=== PATIENT | female | born 1970 | race American Indian/Alaskan Native ===

== ENCOUNTER 2019-08-20 19:15 | Emergency (ER) | payer OTHER ==
--- NOTE | 2019-08-20 19:25 | Emergency Department Report ---
Blank Doc - Documentation Documentation: 48-year-old female that presents with SOB and sore throat. Denies any chest p ain. This initial assessment/diagnostic orders/clinical plan/treatment(s) is/are subject to change based on patient's health status, clinical progression and re- assessment by fellow clinical providers in the ED. Further treatment and workup at subsequent clinical providers discretion. Patient/guardians urged not to elope from the ED as their condition may be serious if not clinically assessed and managed. Initial orders include: 1- Patient sent to MAIN ED for further evaluation and treatment 2- Strep swab 3- EKG 4- CXR 5- labs
[2019-08-20 19:57] LABS: Basophils # (Auto) 0.1 K/mm3 (0.0-0.1); Basophils % (Auto) 0.7 % (0.0-1.8); Eosinophils # (Auto) 0.1 K/mm3 (0.0-0.4); Eosinophils % (Auto) 0.5 % (0.0-4.3); Hematocrit 43.3 % (30.3-42.9); Hemoglobin 14.4 gm/dl (10.1-14.3); Lymphocytes # (Auto) 3.3 K/mm3 (1.2-5.4); Mean Corpuscular HGB Conc 33 % (30-34); Mean Corpuscular Volume 88 fl (79-97); Monocytes % (Auto) 8.2 % (0.0-7.3); Platelet Count 307 K/mm3 (140-440); Red Blood Count 4.93 M/mm3 (3.65-5.03); Red Cell Distribution Width 14.8 % (13.2-15.2)
[2019-08-20 20:07] LABS: INR 1.01 (0.87-1.13)
[2019-08-20 20:09] LABS: Partial Thromboplastin Time 28.3 Sec. (24.2-36.6)
[2019-08-20 20:22] LABS: Alanine Aminotransferase 14 units/L (7-56); Albumin 3.9 g/dL (3.9-5); BUN/Creatinine Ratio 10; Blood Urea Nitrogen 10 mg/dL (7-17); Calcium 9.2 mg/dL (8.4-10.2); Hemolysis Index 18
[2019-08-20] MEDS ORDERED: CLINDAMYCIN 600 MG/50 mL 600 MG/50 ML BAG IV ONE (20:57)
--- NOTE | 2019-08-20 21:02 | Emergency Department Report ---
ED General Adult HPI - General Chief complaint: Dyspnea/Respdistress Stated complaint: SD Time Seen by Provider: 08/20/19 19:23 Source: patient Mode of arrival: Ambulatory Limitations: No Limitations - History of Present Illness Initial comments: Patient is 48 years old female with no significant past medical history. Patient presented to the ER stating that she is feeling that there is something in her throat. Patient stated that she was eating a burger 5 days ago when she started feeling this symptoms. Recent stated that she is having difficulty swallowing. Patient denied chest pain. No fever or chills. -: days(s) (5) - Related Data Allergies Allergy/AdvReac Type Severity Reaction Status Date / Time codeine Allergy Vomiting Verified 08/20/19 19:20 Sulfa (Sulfonamide Allergy Rash Verified 08/20/19 19:20 Antibiotics) ED Review of Systems ROS: Stated complaint: SD Other details as noted in HPI Comment: All other systems reviewed and negative Constitutional: denies: chills, fever Respiratory: denies: cough, orthopnea, shortness of breath, SOB with exertion, SOB at rest Cardiovascular: denies: chest pain Gastrointestinal: denies: abdominal pain, nausea ED Past Medical Hx - Past Medical History Previous Medical History?: No - Surgical History Additional Surgical History: hysterectomy - Social History Smoking Status: Never Smoker Substance Use Type: None ED Physical Exam - General Limitations: No Limitations General appearance: alert, in no apparent distress - Head Head exam: Present: atraumatic, normocephalic, normal inspection - Eye Eye exam: Present: normal appearance - ENT ENT exam: Present: normal exam, normal orophraynx, mucous membranes moist - Neck Neck exam: Present: normal inspection, full ROM. Absent: tenderness, meningismus, lymphadenopathy, thyromegaly - Respiratory Respiratory exam: Present: normal lung sounds bilaterally - Cardiovascular Cardiovascular Exam: Present: regular rate, normal rhythm, normal heart sounds - GI/Abdominal GI/Abdominal exam: Present: soft, normal bowel sounds. Absent: distended, tenderness, guarding, rebound, rigid, organomegaly, mass, bruit, pulsatile mass, hernia - Extremities Exam Extremities exam: Present: normal inspection, full ROM, normal capillary refill. Absent: tenderness, pedal edema, joint swelling, calf tenderness - Back Exam Back exam: Present: normal inspection, full ROM. Absent: CVA tenderness (R), CVA tenderness (L) - Neurological Exam Neurological exam: Present: alert, oriented X3, CN II-XII intact, normal gait, reflexes normal - Psychiatric Psychiatric exam: Present: normal mood - Skin Skin exam: Present: warm, intact, normal color ED Course Vital Signs 08/20/19 08/20/19 19:22 19:23 Temperature 99 F 99.0 F Pulse Rate 99 H 99 H Respiratory 22 14 Rate Blood Pressure 154/99 Blood Pressure 154/99 [Right] O2 Sat by Pulse 99 98 Oximetry ED Medical Decision Making - Lab Data Result diagrams: 08/20/19 19:38 08/20/19 19:38 - EKG Data -: EKG Interpreted by Nh EKG shows normal: sinus rhythm Rate: normal - EKG Data Interpretation: no acute changes - Radiology Data Radiology results: report reviewed - Medical Decision Making Patient is 48 years old female with no significant past medical history. Patient presented to the ER stating that she is feeling that there is something in her throat. Patient stated that she was eating a burger 5 days ago when she started feeling this symptoms. Recent stated that she is having difficulty swallowing. Patient denied chest pain. No fever or chills. Patient's symptoms improved significantly with morphine. Labs reviewed that is unremarkable including a negative troponin. EKG is unremarkable. CT soft tissue neck with IV contrast is negative for acute finding. CT chest showed a 5 cm intramuscular fat-containing mass into the right infraspinatous muscle. Patient strongly advised to follow-up with her primary care physician for MRI with and without contrast for further management and also advised to return to the ER if symptoms are not improved. Critical care attestation.: If time is entered above; I have spent that time in minutes in the direct care of this critically ill patient, excluding procedure time. ED Disposition Clinical Impression: Neck pain, Mass Disposition: DC-01 TO HOME OR SELFCARE Is pt being admited?: No Condition: Stable Instructions: Dyspnea (ED) Referrals: PRIMARY CARE, [Primary Care Provider] - 3-5 Days
[2019-08-20] MEDS ORDERED: ONDANSETRON 4 MG/2 ML INJ IV ONE (21:04)
[2019-08-20] MEDS ORDERED: MORPHINE 4 MG/1 ML INJ IV ONE (21:04)
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
--- NOTE | 2019-08-20 22:05 | Cat Scan Report ---
NECK CT 08/20/2019 HISTORY: Rule out foreign body sensation to throughout" FINDINGS: Contrast enhanced CT images of the soft tissues of the neck were obtained. Images are evalu ated in the axial, coronal, and sagittal planes. There is no evidence of radiopaque foreign body in the soft tissues of the neck. There is no evidence of abnormal soft tissue mass, fluid collection, or inflammation. There is no evidence of abnormal cervical adenopathy. Images through the lower portion of the brain demonstrate a large posterior fossa cystic lesion, cons istent with a large arachnoid cyst. This is presumably chronic. Are there any prior head CT or MRI ex ams which might be available for comparison, to ensure stability of this presumed chronic finding. IMPRESSION: No evidence of abnormal foreign body or soft tissue mass within the neck. All CT scans at this location are performed using dose reduction to ALARA by means of automated expos ure control. Signer Name: Preston Bobo MD Signed: 08/20/2019 10:01 PM Workstation Name: [id number]
[2019-08-20 23:45] VITALS: BP 142/76
== END 2019-08-20 23:30 | disposition home or self-care (01) ==
LOC: ED 19:15
DX: M54.2 Cervicalgia (principal); Z90.710 Acquired absence of both cervix and uterus
CPT/HCPCS: 36415; 70491; 71250; 80053; 84443; 84484; 84703; 85025; 85610; 85730; 93005; 93010; 96365; 96375; 99284; J2270; J2405; Q9967